=== PATIENT | male | born 1985 | race Caucasian/White ===

== ENCOUNTER 2017-05-20 23:01 | Emergency (ER) | payer OTHER ==
[2017-05-20 23:06] VITALS: BP 155/93; PULSE 83; RESP 18; TEMP 99.4
[2017-05-20] MEDS ORDERED: TOPICAL SKIN ADHESIVE 1 EACH AMP TOPICAL ONE (23:22)
--- NOTE | 2017-05-20 23:23 | ED ---
Wound/Laceration HPI - General Chief Complaint: Wound/Laceration Stated Complaint: IHS/ Face Injury Time Seen by Provider: 05/20/17 23:12 Source: patient Mode of arrival: ambulatory Limitations: no limitations - History of Present Illness Initial Comments: patient presents for cut on the bridge of his nose. Patient states when he was at work she was lifting a box off a shelf that was approximately had level. He states of box weighed only a few pounds. Patient states the box slipped and the corner "caught my nose just right" causing a cut on his nose. Patient states he has a mild ache in the area of the cut, however denies any other pain. Patient denies headache, vision changes, facial swelling, neck pain, syncope. Patient denies blood thinner use. patient has no other complaints other than cut on his nose. Pt states "I just wanted to glue it but they may be come in". - Related Data Home Medications Medication Instructions Recorded Confirmed Ibuprofen [Motrin] 800 mg PO ONCE PRN 05/20/17 05/20/17 Allergies Allergy/AdvReac Type Severity Reaction Status Date / Time No Known Allergies Allergy Verified 05/20/17 23:13 Review of Systems ROS Statement: Those systems with pertinent positive or pertinent negative responses have been documented in the HPI. Eyes: Denies: eye pain, eye discharge, vision change ENT: Reports: epistaxis (Currently resolved). Denies: dental pain, congestion Respiratory: Denies: dyspnea Cardiovascular: Denies: palpitations, syncope Endocrine: Denies: fatigue Gastrointestinal: Denies: nausea, vomiting Musculoskeletal: Denies: back pain, arthralgia Skin: Reports: other (cut on nose) Neurological: Denies: headache Past Medical History Past Medical History: No Reported History History of Any Multi-Drug Resistant Organisms: None Reported Past Surgical History: No Surgical Hx Reported Past Psychological History: No Psychological Hx Reported Smoking Status: Current every day smoker Past Alcohol Use History: None Reported Past Drug Use History: None Reported General Exam - General Exam Comments Initial Comments: sitting up on side of bed. No acute distress. Conversing normally. Calm, pleasant. Well appearing. Not appear in pain. Limitations: no limitations General appearance: alert, in no apparent distress Head exam: Present: normocephalic, other (bony tenderness of the face. mild edema on the bridge of the nose. Nares clear bilaterally. No septal hematoma. No laxity and nasal cartilage appreciated. ) Eye exam: Present: PERRL, EOMI. Absent: conjunctival injection, periorbital swelling, periorbital tenderness ENT exam: Present: normal oropharynx, mucous membranes moist, normal external ear exam, other (no blood in oropharynx. No dental abnormalities appreciated. No loose teeth or fractures appreciated.) Neck exam: Present: normal inspection, full ROM. Absent: tenderness Respiratory exam: Present: normal lung sounds bilaterally. Absent: respiratory distress Cardiovascular Exam: Present: regular rate, normal rhythm GI/Abdominal exam: Present: soft Neurological exam: Present: alert, oriented X3, CN II-XII intact Psychiatric exam: Present: normal affect, normal mood Skin exam: Present: warm, dry, normal color, other (1 cm superficial laceration across the bridge of the nose, no active bleeding. Appears to go into dermis only, not into subcutaneous tissue.) Course Vital Signs 05/20/17 23:02 Temperature 99.4 F Pulse Rate 83 Respiratory 18 Rate Blood Pressure 155/93 O2 Sat by Pulse 99 Oximetry Procedures - Laceration Laceration #1 Consent Obtained: verbal consent Time Out Performed: Yes Indication: laceration Site: face Size (cm): 1 Description: linear Depth: simple, single layer Pre-repair: deep structures intact Technique: other (Dermabond) Patient Tolerated Procedure: well Medical Decision Making - Medical Decision Making patient has no septal hematoma or signs of nasal fracture. Nasal cartilages fractured unlikely emergent intervention required. The patient unhappy with cosmetic outcomes he can be referred to Lasix surgery by primary care physician. Patient was happy and agreeable with plan for Dermabond glue. cut was cleaned with sterile saline. The cut was glued closed. Pt tolerated procedure well. Patient referred to primary care physician in one to 2 days for wound recheck. Return to ED if new or worsening symptoms. Patient understands and agrees. Disposition Clinical Impression: Laceration of nose Disposition: HOME SELF-CARE Condition: Good Instructions: Laceration (ED) Additional Instructions: follow-up with primary care physician in one to 2 days for wound recheck. Return to ED immediately if new or worsening symptoms. Referrals: Ross Plummer MD [Primary Care Provider] - 1-2 days
== END 2017-05-20 23:38 | disposition home or self-care (01) ==
LOC: EC 23:01
DX: S01.21XA Laceration without foreign body of nose, initial encounter (principal); F17.200 Nicotine dependence, unspecified, uncomplicated; W22.8XXA Striking against or struck by other objects, initial encounter; Y93.89 Activity, other specified; Y92.69 Other specified industrial and construction area as the place of occurrence of the external cause; Y99.0 Civilian activity done for income or pay
CPT/HCPCS: 12011; 99283

== ENCOUNTER 2017-10-29 09:34 | Emergency (ER) | payer BC ==
[2017-10-29] MEDS ORDERED: KETOROLAC 30 MG/ML 1 ML VIAL IVP STA (10:01)
[2017-10-29] MEDS ORDERED: FAMOTIDINE 20 MG/2 ML VIAL IV STA (10:01)
[2017-10-29] MEDS ORDERED: diphenhydrAMINE 50 MG/ML 1 ML VIAL IVP STA (10:01)
[2017-10-29] MEDS ORDERED: SODIUM CHLORIDE 0.9% 2,000 ML IV STA (10:01)
[2017-10-29] MEDS ORDERED: METOCLOPRAMIDE 5 MG/ML 2 ML VIAL IVP STA (10:01)
--- NOTE | 2017-10-29 10:23 | ED ---
General Adult HPI - General Chief complaint: Nausea/Vomiting/Diarrhea Stated complaint: Nausea & vomiting Time Seen by Provider: 10/29/17 09:40 Source: patient, RN notes reviewed Mode of arrival: ambulatory Limitations: no limitations - History of Present Illness Initial comments: 32-year-old male presents emergency Department with multiple complaints. Patient states she's had a headache last couple days normally has headaches states that he nor takes ibuprofen or other [id number] medications any alleviate's. He states occasionally he has come the hospital for his headaches. Patient denies any fever, chills, neck pain or focal weakness. Patient states she's been having ongoing nausea is been worsening. Patient states that he feels that he is heartburn. Denies any chest pain or shortness breath. Denies any diarrhea, constipation, dysuria or hematuria. He states occasionally takes Tums with states does not help much. Patient states he does take daily Prozac. - Related Data Home Medications Medication Instructions Recorded Confirmed FLUoxetine HCL [PROzac] 20 mg PO DAILY 10/29/17 10/29/17 methylPREDNISolone Dose Pack See Taper PO DIRECTED 10/29/17 10/29/17 [Medrol Dose Pack] Previous Rx's Medication Instructions Recorded Omeprazole 40 mg PO DAILY #14 capsule. 10/29/17 Ondansetron Odt [Zofran Odt] 4 mg PO Q8HR PRN #10 tab 10/29/17 Allergies Allergy/AdvReac Type Severity Reaction Status Date / Time No Known Allergies Allergy Verified 10/29/17 09:50 Review of Systems ROS Statement: Those systems with pertinent positive or pertinent negative responses have been documented in the HPI. ROS Other: All systems not noted in ROS Statement are negative. Past Medical History Past Medical History: No Reported History Additional Past Medical History / Comment(s): depressed skull fracture History of Any Multi-Drug Resistant Organisms: None Reported Past Surgical History: No Surgical Hx Reported Past Psychological History: Anxiety, Depression Smoking Status: Current every day smoker Past Alcohol Use History: None Reported Past Drug Use History: None Reported General Exam Limitations: no limitations General appearance: alert, in no apparent distress Head exam: Present: atraumatic, normocephalic, normal inspection Eye exam: Present: normal appearance, PERRL, EOMI. Absent: scleral icterus, conjunctival injection, periorbital swelling ENT exam: Present: normal exam, normal oropharynx, mucous membranes moist, TM's normal bilaterally, normal external ear exam Neck exam: Present: normal inspection, full ROM. Absent: tenderness, meningismus, lymphadenopathy Respiratory exam: Present: normal lung sounds bilaterally. Absent: respiratory distress, wheezes, rales, rhonchi, stridor Cardiovascular Exam: Present: regular rate, normal rhythm, normal heart sounds. Absent: systolic murmur, diastolic murmur, rubs, gallop, clicks GI/Abdominal exam: Present: soft, tenderness (Mild epigastric), normal bowel sounds. Absent: distended, guarding, rebound, rigid Back exam: Absent: CVA tenderness (R), CVA tenderness (L) Neurological exam: Present: alert, oriented X3, CN II-XII intact, reflexes normal. Absent: motor sensory deficit Skin exam: Present: warm, dry, intact, normal color. Absent: rash Course Vital Signs 10/29/17 09:36 Temperature 97.7 F Pulse Rate 72 Respiratory 18 Rate Blood Pressure 154/96 O2 Sat by Pulse 99 Oximetry Medical Decision Making - Medical Decision Making 32-year-old male present emergency Department chief complaint of headache, nausea. Patient feels better after medications he does have slight residual headache but states it's most resolving. Patient states the nausea is improved. Patient also has underlying GERD/gastritis. He'll be given omeprazole 40 mg daily. Patient was given Zofran upon discharge. Return parameters were discussed. - Lab Data Result diagrams: 10/29/17 10:10 10/29/17 10:10 Lab Results 10/29/17 10/29/17 10/29/17 Range/Units 10:10 10:10 10:10 WBC 10.8 H (3.8-10.6) k/uL RBC 5.01 (4.30-5.90) m/uL Hgb 15.4 (13.0-17.5) gm/dL Hct 44.8 (39.0-53.0) % MCV 89.3 (80.0-100.0) fL MCH 30.8 (25.0-35.0) pg MCHC 34.5 (31.0-37.0) g/dL RDW 12.8 (11.5-15.5) % Plt Count 401 (150-450) k/uL Neutrophils % 63 % Lymphocytes % 26 % Monocytes % 5 % Eosinophils % 3 % Basophils % 0 % Neutrophils # 6.8 (1.3-7.7) k/uL Lymphocytes # 2.8 (1.0-4.8) k/uL Monocytes # 0.6 (0-1.0) k/uL Eosinophils # 0.3 (0-0.7) k/uL Basophils # 0.1 (0-0.2) k/uL Sodium 143 (137-145) mmol/L Potassium 4.5 (3.5-5.1) mmol/L Chloride 104 (98-107) mmol/L Carbon Dioxide 27 (22-30) mmol/L Anion Gap 12 mmol/L BUN 18 (9-20) mg/dL Creatinine 0.85 (0.66-1.25) mg/dL Est GFR (CKD-EPI)AfAm >90 (>60 ml/min/1.73 sqM) Est GFR (CKD-EPI)NonAf >90 (>60 ml/min/1.73 sqM) Glucose 99 (74-99) mg/dL Calcium 10.1 (8.4-10.2) mg/dL Total Bilirubin 0.5 (0.2-1.3) mg/dL AST 18 (17-59) U/L ALT 24 (21-72) U/L Alkaline Phosphatase 54 (38-126) U/L Total Protein 7.4 (6.3-8.2) g/dL Albumin 4.5 (3.5-5.0) g/dL Amylase 64 (30-110) U/L Lipase 139 (23-300) U/L Urine Color Yellow Urine Appearance Clear (Clear) Urine pH 5.5 (5.0-8.0) Ur Specific [place] 1.015 (1.001-1.035) Urine Protein Negative (Negative) Urine Glucose (UA) Negative (Negative) Urine Ketones Negative (Negative) Urine Blood Negative (Negative) Urine Nitrite Negative (Negative) Urine Bilirubin Negative (Negative) Urine Urobilinogen <2.0 (<2.0) mg/dL Ur Leukocyte Esterase Negative (Negative) Disposition Clinical Impression: Gastritis, Nausea, Headache Disposition: HOME SELF-CARE Condition: Stable Instructions: Gastritis (ED) Additional Instructions: Please return to the Emergency Department if symptoms worsen or any other concerns. Prescriptions: Omeprazole 40 mg PO DAILY #14 capsule. Ondansetron Odt [Zofran Odt] 4 mg PO Q8HR PRN #10 tab PRN Reason: Nausea Referrals: Ross Plummer MD [Primary Care Provider] - 1-2 days Time of Disposition: 10:59
[2017-10-29 10:36] LABS: Basophils # (A) 0.1 k/uL (0-0.2); Basophils % (A) 0 %; Eosinophils # (A) 0.3 k/uL (0-0.7); Eosinophils % (A) 3 %; HCT 44.8 % (39.0-53.0); HGB 15.4 gm/dL (13.0-17.5); Lymphocytes # (A) 2.8 k/uL (1.0-4.8); Lymphocytes % (A) 26 %; MCH 30.8 pg (25.0-35.0); MCHC 34.5 g/dL (31.0-37.0); MCV 89.3 fL (80.0-100.0); Mean Platelet Volume 6.5; Monocytes # (A) 0.6 k/uL (0-1.0); Monocytes % (A) 5 %; Neutrophils # (A) 6.8 k/uL (1.3-7.7); Neutrophils % (A) 63 %; Platelet Count 401 k/uL (150-450); RBC 5.01 m/uL (4.30-5.90); RDW 12.8 % (11.5-15.5); WBC 10.8 k/uL (3.8-10.6)
[2017-10-29 10:37] LABS: Appearance,Urine Clear (Clear); Bilirubin,Urine Negative (Negative); Blood,Urine Negative (Negative); Color,Urine Yellow; Glucose,Urine (UA) Negative (Negative); Ketones,Urine Negative (Negative); Leukocyte Esterase,Urine Negative (Negative); Nitrite,Urine Negative (Negative); PH, Urine 5.5 (5.0-8.0); Protein,Urine Negative (Negative); Specific Gravity,Urine 1.015 (1.001-1.035); Urobilinogen,Urine <2.0 mg/dL (<2.0)
[2017-10-29 10:45] LABS: ALT 24 U/L (21-72); AST 18 U/L (17-59); Albumin 4.5 g/dL (3.5-5.0); Alkaline Phosphatase 54 U/L (38-126); Amylase 64 U/L (30-110); Anion Gap 12 mmol/L; Blood Urea Nitrogen 18 mg/dL (9-20); Calcium 10.1 mg/dL (8.4-10.2); Carbon Dioxide 27 mmol/L (22-30); Chloride 104 mmol/L (98-107); Glucose 99 mg/dL (74-99); Lipase 139 U/L (23-300); Potassium 4.5 mmol/L (3.5-5.1); Sodium 143 mmol/L (137-145); Total Bilirubin 0.5 mg/dL (0.2-1.3); Total Protein 7.4 g/dL (6.3-8.2)
[2017-10-29] MEDS ORDERED: BUTALB/APAP/CAFF 50-325-40MG TAB PO STA (10:57)
[2017-10-29 11:20] VITALS: BP 136/82; PULSE 78; RESP 16; TEMP 97.8
== END 2017-10-29 11:21 | disposition home or self-care (01) ==
LOC: EC 09:34
DX: K29.70 Gastritis, unspecified, without bleeding (principal); R51 Headache; F32.9 Major depressive disorder, single episode, unspecified; F17.200 Nicotine dependence, unspecified, uncomplicated; Z79.899 Other long term (current) drug therapy; Z79.52 Long term (current) use of systemic steroids
CPT/HCPCS: 99284; 96374; 96375 ×3; 96361; 36415; 80053; 82150; 83690; 85025; 81003; J1200; J2765; J1885

== ENCOUNTER → 2017-11-04 | Outpatient (CLI) | payer BC ==
--- NOTE | 2017-11-04 14:12 | CT ---
EXAMINATION TYPE: CT brain wo/w con DATE OF EXAM: 11/04/2017 COMPARISON: NONE HISTORY: Headache x [address] DLP: 2094.2 mGycm Automated Exposure Control for Dose Reduction was Utilized. TECHNIQUE: CT scan of the head is performed without and with IV Contrast, patient injected with 100 m L of Isovue 300. FINDINGS: Noncontrast images show no acute intracranial hemorrhage or midline shift. The ventricles and sulci are within normal limits in size. Ram-white matter differentiation is maintained. The karen varium is intact. Postcontrast images show no suspicious enhancing intraparenchymal mass. The globes are intact and the visualized sinuses are clear. Nasal septum is deviated to right of midline. IMPRESSION: No significant finding is seen to account for patient's symptoms.
== END | disposition home or self-care (01) ==
LOC: RADCTMAIN 12:54
PROVIDERS: ATTEND Family Medicine
DX: R51 Headache (principal)
CPT/HCPCS: 70470; Q9967

== ENCOUNTER 2017-11-25 11:16 | Emergency (ER) | payer BC ==
[2017-11-25 12:08] VITALS: BP 156/91; PULSE 76; RESP 18; TEMP 98
[2017-11-25 14:41] LABS: Basophils % (A) 0 %; Eosinophils # (A) 0.1 k/uL (0-0.7); Eosinophils % (A) 1 %; HCT 45.6 % (39.0-53.0); HGB 15.6 gm/dL (13.0-17.5); Lymphocytes # (A) 2.5 k/uL (1.0-4.8); Lymphocytes % (A) 25 %; MCH 29.6 pg (25.0-35.0); MCHC 34.2 g/dL (31.0-37.0); MCV 86.5 fL (80.0-100.0); Mean Platelet Volume 6.8; Monocytes # (A) 0.5 k/uL (0-1.0); Monocytes % (A) 5 %; Neutrophils # (A) 6.7 k/uL (1.3-7.7); Neutrophils % (A) 67 %; Platelet Count 430 k/uL (150-450); RBC 5.26 m/uL (4.30-5.90); RDW 12.5 % (11.5-15.5); WBC 10.1 k/uL (3.8-10.6)
[2017-11-25 14:48] LABS: ALT 24 U/L (21-72); AST 21 U/L (17-59); Alkaline Phosphatase 75 U/L (38-126); Amylase 57 U/L (30-110); Anion Gap 14 mmol/L; Blood Urea Nitrogen 16 mg/dL (9-20); Calcium 10.1 mg/dL (8.4-10.2); Carbon Dioxide 25 mmol/L (22-30); Chloride 102 mmol/L (98-107); Glucose 91 mg/dL (74-99); Lipase 69 U/L (23-300); Potassium 4.4 mmol/L (3.5-5.1); Sodium 141 mmol/L (137-145); Total Bilirubin 0.6 mg/dL (0.2-1.3); Total Protein 7.8 g/dL (6.3-8.2)
[2017-11-25] MEDS ORDERED: METOCLOPRAMIDE 5 MG/ML 2 ML VIAL IVP STA (15:12)
[2017-11-25] MEDS ORDERED: diphenhydrAMINE 50 MG/ML 1 ML VIAL IVP STA (15:12)
[2017-11-25] MEDS ORDERED: SODIUM CHLORIDE 0.9% 1,000 ML IV ONE (15:12)
[2017-11-25] MEDS ORDERED: KETOROLAC 30 MG/ML 1 ML VIAL IVP STA (15:12)
--- NOTE | 2017-11-25 15:17 | ED ---
General Adult HPI - General Chief complaint: Nausea/Vomiting/Diarrhea Stated complaint: Nausea/Vomiting/Migraine/Abd Pain Time Seen by Provider: 11/25/17 15:03 Source: patient Mode of arrival: ambulatory Limitations: no limitations - History of Present Illness Initial comments: This is a 32-year-old male with a history of migraines who presents emergency department for migraine, nausea, and vomiting. He states that this migraine has been going on for the last couple of days. He states that he typically gets one migraine a month and this feels typical for him. He states he has been having a lot of nausea over the last month which has been constant. He states that last night he developed some epigastric abdominal pain that radiated to his back. He states it gets worse with burping, eating, or coughing and he states that he has not noticed any blood in his vomit. No black or bloody stools currently. He does have chronically loose stools. He denies any lightheadedness. No focal neurologic symptoms including weakness, numbness, or speech difficulty. No double vision. Denies any other acute complaints. He was seen here earlier in the month for similar complaints and workup was negative. A computed tomography scan done outpatient which was negative. - Related Data Home Medications Medication Instructions Recorded Confirmed FLUoxetine HCL [PROzac] 20 mg PO DAILY 10/29/17 10/29/17 methylPREDNISolone Dose Pack See Taper PO DIRECTED 10/29/17 10/29/17 [Medrol Dose Pack] Previous Rx's Medication Instructions Recorded Omeprazole 40 mg PO DAILY #14 capsule. 10/29/17 Ondansetron Odt [Zofran Odt] 4 mg PO Q8HR PRN #10 tab 10/29/17 Allergies Allergy/AdvReac Type Severity Reaction Status Date / Time No Known Allergies Allergy Verified 11/25/17 12:07 Review of Systems ROS Statement: Those systems with pertinent positive or pertinent negative responses have been documented in the HPI. ROS Other: All systems not noted in ROS Statement are negative. Past Medical History Past Medical History: No Reported History, GERD/Reflux, Hypertension Additional Past Medical History / Comment(s): depressed skull fracture History of Any Multi-Drug Resistant Organisms: None Reported Past Surgical History: No Surgical Hx Reported Past Psychological History: Anxiety, Depression Smoking Status: Current every day smoker Past Alcohol Use History: None Reported Past Drug Use History: None Reported General Exam - General Exam Comments Initial Comments: Constitutional: Awake alert Appears comfortable Head: Normocephalic atraumatic Eyes: no conjunctival injection No scleral icterus EOMI, pupils are 4 mm and reactive bilaterally Neck: No JVD Supple, no meningismus Heart: Regular rate rhythm normal S1-S2 no murmurs Lungs: Clear to auscultation bilaterally No wheezing No rales Abdomen: Soft nondistended epigastric tenderness without rebound or guarding Extremities: Non edematous DP pulses intact Radial pulses intact Neuro: A&Ox3, 5 out of 5 strength in upper and lower extremities bilaterally, normal finger to nose and heel to barr testing, sensation intact to light touch in all extremities, cranial nerves II through XII are grossly intact No focal neurologic deficits Psych: Appropriate mood and affect Limitations: no limitations Course Vital Signs 11/25/17 12:05 Temperature 98.0 F Pulse Rate 76 Respiratory 18 Rate Blood Pressure 156/91 O2 Sat by Pulse 96 Oximetry Medical Decision Making - Medical Decision Making -year-old came in for nausea, vomiting, and headache. The patient eloped from the emergency department prior to full evaluation. I was not able to find the patient. He did not notify nursing or myself that he was leaving. IV was found on the gurney as well as the gown. - Lab Data Result diagrams: 11/25/17 14:30 11/25/17 14:30 Lab Results 11/25/17 11/25/17 Range/Units 14:30 14:30 WBC 10.1 (3.8-10.6) k/uL RBC 5.26 (4.30-5.90) m/uL Hgb 15.6 (13.0-17.5) gm/dL Hct 45.6 (39.0-53.0) % MCV 86.5 (80.0-100.0) fL MCH 29.6 (25.0-35.0) pg MCHC 34.2 (31.0-37.0) g/dL RDW 12.5 (11.5-15.5) % Plt Count 430 (150-450) k/uL Neutrophils % 67 % Lymphocytes % 25 % Monocytes % 5 % Eosinophils % 1 % Basophils % 0 % Neutrophils # 6.7 (1.3-7.7) k/uL Lymphocytes # 2.5 (1.0-4.8) k/uL Monocytes # 0.5 (0-1.0) k/uL Eosinophils # 0.1 (0-0.7) k/uL Basophils # 0.0 (0-0.2) k/uL Sodium 141 (137-145) mmol/L Potassium 4.4 (3.5-5.1) mmol/L Chloride 102 (98-107) mmol/L Carbon Dioxide 25 (22-30) mmol/L Anion Gap 14 mmol/L BUN 16 (9-20) mg/dL Creatinine 0.80 (0.66-1.25) mg/dL Est GFR (CKD-EPI)AfAm >90 (>60 ml/min/1.73 sqM) Est GFR (CKD-EPI)NonAf >90 (>60 ml/min/1.73 sqM) Glucose 91 (74-99) mg/dL Calcium 10.1 (8.4-10.2) mg/dL Total Bilirubin 0.6 (0.2-1.3) mg/dL AST 21 (17-59) U/L ALT 24 (21-72) U/L Alkaline Phosphatase 75 (38-126) U/L Total Protein 7.8 (6.3-8.2) g/dL Albumin 5.0 (3.5-5.0) g/dL Amylase 57 (30-110) U/L Lipase 69 (23-300) U/L Disposition Clinical Impression: Headache Disposition: Left W/O Being Seen by Phys Referrals: Ross Plummer MD [Primary Care Provider] - 1-2 days
== END 2017-11-25 16:51 | disposition left against medical advice (07) ==
LOC: EC 11:16
DX: G43.909 Migraine, unspecified, not intractable, without status migrainosus (principal); R11.2 Nausea with vomiting, unspecified; R10.13 Epigastric pain; M54.9 Dorsalgia, unspecified; F32.9 Major depressive disorder, single episode, unspecified; F41.9 Anxiety disorder, unspecified; F17.200 Nicotine dependence, unspecified, uncomplicated; Z79.52 Long term (current) use of systemic steroids; Z79.899 Other long term (current) drug therapy
CPT/HCPCS: 36415; 80053; 82150; 83690; 85025; 99284; 96374; 96375 ×2; 96361; J1200; J2765; J1885

== ENCOUNTER 2017-12-15 13:09 | Day surgery (SDC) | payer BC ==
[~2017-12-15 13:09] MED LIST: LACTATED RINGERS 1,000 ML IV SCH
[2017-12-15 13:25] VITALS: TEMP 98.6
[2017-12-15] MEDS ORDERED: LIDOCAINE 1% 20 ML VIAL (10MG/ML) FOR IV START INTRADERMA ONE (13:34)
[2017-12-15] MEDS ORDERED: LIDOCAINE 1% INJ 10MG/ML (20 ML MDV) ONE (14:49)
[2017-12-15] MEDS ORDERED: PROPOFOL 10 MG/ML 20 ML VIAL IV ONE (14:49)
--- NOTE | 2017-12-15 15:11 | P.PCN ---
Date of Procedure: 12/15/17 Procedure(s) Performed: Procedure: Esophagogastroduodenoscopy and biopsy. Preoperative diagnosis: Nausea and vomiting. Postoperative diagnosis: 1. Small sliding hiatal hernia with no obvious esophagitis or complicated reflux disease. 2. Small distal esophageal polyp benign-appearing. 3. Mild gastritis and duodenitis. 4. Biopsies obtained from the duodenum, antrum, esophagus in addition to the esophageal polyp. Preparation sedation: Was provided by anesthesia. Brief clinical history: The patient is a 32-year-old male who is scheduled for this evaluation because of onset of nausea and vomiting as well as abdominal pains and change in bowels that occurred over the last 2 to 3 months. No bleeding or other alarm symptoms. The patient has not responded to PPI and responded partially to symptomatic treatment. Procedure: With the patient on his left lateral decubitus position and after informed consent and adequate sedation, I passed the Olympus-GIF 160 video upper endoscope through the cricopharyngeus down the esophagus. GE junction was around 41 cm from the incisors and there was a small less than 1 cm sliding hiatal hernia. There was no obvious esophagitis or complicated reflux disease. There was a small, less than half a centimeter polyp, in the distal esophagus that appeared benign. The endoscope was then passed into the stomach which was insufflated with air and inspected in detail including the retroflex view in the cardia. There was minimal mottling and erythema in the antrum but no ulcers or erosions. Pyloric channel did not show any ulcers. Duodenal bulb, post bulbar area and descending duodenum showed some erythema and minimal friability with no ulcers or erosions. I obtained biopsies from the duodenum, antrum and esophagus as well as from the distal esophageal polyp then the endoscope was withdrawn. The patient tolerated the procedure well. Plan: The patient was reassured. Will await biopsy results and make further plans based on his course and biopsy results. He will follow up with you as planned and I will be happy to see in the office of his symptoms persist.
[2017-12-15 15:13] VITALS: RESP 16
[2017-12-15] MEDS: BUTA/APAP/CAF/COD 50-325-40-30 CAP PO STA ×2 (15:45→15:47)
[2017-12-15 15:55] LABS: Glucose,Whole Blood 88 mg/dL (75-99)
[2017-12-15 16:16] VITALS: BP 124/70; PULSE 80
== END 2017-12-15 16:12 | disposition home or self-care (01) ==
LOC: ORWHC2ENDO 13:09
DX: K29.50 Unspecified chronic gastritis without bleeding (principal); K21.0 Gastro-esophageal reflux disease with esophagitis; D13.0 Benign neoplasm of esophagus; K29.80 Duodenitis without bleeding; K44.9 Diaphragmatic hernia without obstruction or gangrene; I10 Essential (primary) hypertension; F39 Unspecified mood [affective] disorder; R51 Headache; G89.29 Other chronic pain; Z72.0 Tobacco use; Z79.899 Other long term (current) drug therapy
CPT/HCPCS: 43239; J2001; J2704; 88305

== ENCOUNTER → 2017-12-25 | Outpatient (CLI) | payer BC, OTHER ==
--- NOTE | 2017-12-25 10:37 | US ---
EXAMINATION TYPE: US abdomen complete DATE OF EXAM: 12/25/2017 COMPARISON: NONE CLINICAL HISTORY: R10.9 ABD PAIN. Intermittent RUQ pain and N/V x couple years that has gotten worse in past 2 months EXAM MEASUREMENTS: Liver Length: 13.4 cm Gallbladder Wall: 0.2 cm CBD: 0.2 cm Spleen: 10.7 cm Right Kidney: 11.4 x 4.3 x 4.8 cm Left Kidney: 11.9 x 5.6 x 4.9 cm Pancreas: obscured by overlying midline bowel gas Liver: wnl Gallbladder: wnl Evidence for sonographic Trujillo's sign: yes CBD: visualized portions wnl, limited by overlying bowel gas Spleen: wnl Right Kidney: wnl Left Kidney: wnl Upper IVC: wnl Abd Aorta: visualized portions wnl, proximal portion limited by overlying midline bowel gas The liver is homogenous. The intrahepatic portion of the IVC and proximal abdominal aorta are within normal limits. There is no evidence of cholelithiasis. Common bile duct is unremarkable. The panc reas is obscured by overlying bowel gas on images saved. The spleen is unremarkable. Kidneys are sy mmetric and free of hydronephrosis. No renal lesions are seen. IMPRESSION: No suspicious finding is seen to account for patient's symptoms on images saved.
== END | disposition home or self-care (01) ==
LOC: RADUSWWP 07:25
DX: R10.9 Unspecified abdominal pain (principal)
CPT/HCPCS: 76700

== ENCOUNTER 2018-07-06 12:11 | Emergency (ER) | payer BC, OTHER ==
[2018-07-06] MEDS ORDERED: IPRATROPIUM-ALBUTEROL 3 ML NEB INHALATION STA (12:45)
--- NOTE | 2018-07-06 12:49 | ED ---
General Adult HPI - General Chief complaint: Upper Respiratory Infection Stated complaint: Cold/rib pain Time Seen by Provider: 07/06/18 12:24 Source: patient, RN notes reviewed Mode of arrival: ambulatory Limitations: no limitations - History of Present Illness Initial comments: 33-year-old male presents to the emergency department for a chief complaint of cough 10 days. Patient states he feels as if he has congestion in his chest but states he is unable to cough anything up. He does have a history of asthma. Patient is also a smoker. Patient states his bilateral ribs are painful when he coughs. He denies any midline back pain or anterior chest pain. He admits to mild shortness of breath. He denies fevers or chills. Patient has no other complaints at this time including chest pain, abdominal pain, nausea or vomiting, headache, or visual changes. - Related Data Home Medications Medication Instructions Recorded Confirmed Atorvastatin [Lipitor] 20 mg PO QAM 12/11/17 07/06/18 Ergocalciferol (Vitamin D2) 50,000 unit PO Q30D 12/11/17 07/06/18 [Vitamin D2] Omeprazole [PriLOSEC] 20 mg PO BID 12/11/17 07/06/18 buPROPion HCL [Wellbutrin SR] 150 mg PO BID 12/11/17 07/06/18 Dextroamphetamine/Amphetamine 20 mg PO BID 07/06/18 07/06/18 [Adderall] Metoclopramide [Reglan] 10 mg PO ACHS 07/06/18 07/06/18 amLODIPine [Norvasc] 5 mg PO DAILY 07/06/18 07/06/18 Previous Rx's Medication Instructions Recorded Albuterol Inhaler [Ventolin Hfa 1 - 2 puff INHALATION Q6HR PRN #1 07/06/18 Inhaler] inhaler Azithromycin [Zithromax Z-pack] 250 mg PO DIRECTED #6 tab 07/06/18 predniSONE 50 mg PO DAILY #5 tablet 07/06/18 Allergies Allergy/AdvReac Type Severity Reaction Status Date / Time No Known Allergies Allergy Verified 07/06/18 13:45 Review of Systems ROS Statement: Those systems with pertinent positive or pertinent negative responses have been documented in the HPI. ROS Other: All systems not noted in ROS Statement are negative. Past Medical History Past Medical History: GERD/Reflux, Hypertension Additional Past Medical History / Comment(s): CURRENT: N & V, ABD PAIN. OCCASIONAL DIZZINESS. Depressed skull fracture History of Any Multi-Drug Resistant Organisms: None Reported Past Surgical History: No Surgical Hx Reported Past Anesthesia/Blood Transfusion Reactions: Motion Sickness Additional Past Anesthesia/Blood Transfusion Reaction / Comment(s): NO ANESTHESIA. Past Psychological History: Anxiety, Depression Smoking Status: Current every day smoker Past Alcohol Use History: None Reported Additional Past Alcohol Use History / Comment(s): SMOKED FOR 19 YRS, LESS THAN 1PPD. Past Drug Use History: None Reported - Past Family History Mother Family Medical History: No Reported History General Exam Limitations: no limitations General appearance: alert, in no apparent distress Head exam: Present: atraumatic, normocephalic, normal inspection Eye exam: Present: normal appearance, PERRL, EOMI. Absent: scleral icterus, conjunctival injection, periorbital swelling ENT exam: Present: normal exam, normal oropharynx, mucous membranes moist, TM's normal bilaterally, normal external ear exam Neck exam: Present: normal inspection, full ROM. Absent: tenderness, meningismus, lymphadenopathy Respiratory exam: Present: wheezes (Wheezing noted bilaterally), rales (Rales noted in right lower lung base), chest wall tenderness (Bilateral lower lateral rib tenderness) Cardiovascular Exam: Present: regular rate, normal rhythm, normal heart sounds. Absent: systolic murmur, diastolic murmur, rubs, gallop, clicks Neurological exam: Present: alert, oriented X3, CN II-XII intact Psychiatric exam: Present: normal affect, normal mood Course Vital Signs 07/06/18 07/06/18 07/06/18 12:13 13:31 13:44 Temperature 98.1 F Pulse Rate 106 H 104 H Respiratory 20 24 Rate Blood Pressure 168/112 O2 Sat by Pulse 97 Oximetry 07/06/18 07/06/18 13:53 14:00 Temperature Pulse Rate 100 87 Respiratory 22 Rate Blood Pressure 136/93 O2 Sat by Pulse 97 Oximetry Medical Decision Making - Medical Decision Making 33-year-old male presents to the emergency department for a chief complaint of cough 10 days. Patient has also felt short of breath. Patient has tenderness to bilateral lateral lower ribs and states this is painful when coughing. Denies any midline back pain or chest pain. Patient admits to mild shortness of breath. Patient was initially tachycardic but heart rate did normalize to 87. Blood pressure normalized to 136/93. Patient does have wheezing noted throughout the lungs with crackles noted in the right lung base. Influenza is negative. Chest x-ray shows no acute cardiopulmonary process. Patient is a smoker, did discuss smoking cessation for 3.1 minutes. Patient was given a nebulizer treatment which helped significantly. Patient will be given albuterol inhaler at home. As patient does have wheezing and crackles noted in the lungs and this has been ongoing for 10 days he will be treated with antibiotics. He was given steroid. I did offer IM steroid the patient prefers oral steroid. Discussed returning if he has any worsening symptoms which she agrees with. - Lab Data Lab Results 07/06/18 Range/Units 13:30 Influenza Type A RNA Not Detected (Not Detectd) Influenza Type B (PCR) Not Detected (Not Detectd) Disposition Clinical Impression: Bronchitis with bronchospasm Disposition: HOME SELF-CARE Condition: Good Instructions: Upper Respiratory Infection (ED) Additional Instructions: Please take antibiotic and steroid as directed. Use inhaler as needed. Follow- up with primary care in 1-2 days. Return to the emergency department if you have worsening symptoms. Prescriptions: Albuterol Inhaler [Ventolin Hfa Inhaler] 1 - 2 puff INHALATION Q6HR PRN #1 inhaler PRN Reason: Shortness Of Breath Azithromycin [Zithromax Z-pack] 250 mg PO DIRECTED #6 tab predniSONE 50 mg PO DAILY #5 tablet Is patient prescribed a controlled substance at d/c from ED?: No Referrals: Ross Plummer MD [Primary Care Provider] - 1-2 days Time of Disposition: 14:25
--- NOTE | 2018-07-06 13:49 | XR ---
EXAMINATION TYPE: XR chest 2V DATE OF EXAM: 07/06/2018 COMPARISON: NONE HISTORY: Cough, rib pain and shortness of breath TECHNIQUE: Frontal and lateral views of the chest are obtained. FINDINGS: There is no focal air space opacity, pleural effusion, or pneumothorax seen. The cardiac silhouette size is within normal limits. The osseous structures are intact. IMPRESSION: No acute cardiopulmonary process.
[2018-07-06] MEDS ORDERED: cefTRIAXone 1,000 MG VIAL (IM USE) IM STA (14:24)
[2018-07-06] MEDS ORDERED: predniSONE 50 MG TAB PO STA (14:25)
[2018-07-06 14:57] VITALS: BP 138/98; PULSE 89; RESP 20; TEMP 98.4
== END 2018-07-06 14:54 | disposition home or self-care (01) ==
LOC: EC 12:11
DX: J40 Bronchitis, not specified as acute or chronic (principal); J98.01 Acute bronchospasm; I10 Essential (primary) hypertension; K21.9 Gastro-esophageal reflux disease without esophagitis; F32.9 Major depressive disorder, single episode, unspecified; F41.9 Anxiety disorder, unspecified; F17.200 Nicotine dependence, unspecified, uncomplicated; Z79.899 Other long term (current) drug therapy
CPT/HCPCS: 94640; 87502; 71046; 99284; 96372; J0696; J7512

== ENCOUNTER 2019-03-22 10:17 | Emergency (ER) | payer OTHER ==
[2019-03-22] MEDS ORDERED: PROPARACAINE 0.5% OPHTH DROPS 15 ML BTL LEFT EYE STA (10:46)
--- NOTE | 2019-03-22 10:49 | ED ---
Eye Problem HPI - General Chief complaint: Eye Problems Stated complaint: [facility] - eye exposure Time Seen by Provider: 03/22/19 10:37 Source: patient Mode of arrival: ambulatory Limitations: no limitations - History of Present Illness Initial comments: Patient is a 33-year-old male presents emergency Department with chief complaint of oil in his eye. Patient reports yesterday was working on his car when small amounts of oral went to his left eye. Patient is unsure whether there was small particles in the oil. Patient reports yesterday he developed mild "cloudiness" in left eye. Denies any pain. Patient reports waking up this morning and states the symptoms are not resolved. Patient denies any discharge or redness of the head. Patient denies any pain with extraocular movements or periorbital edema. Patient denies any fever night sweats or chills. Patient denies itchiness or photophobia. Patient does not wear contacts. - Related Data Home Medications Medication Instructions Recorded Confirmed Atorvastatin [Lipitor] 20 mg PO QAM 12/11/17 03/22/19 Ergocalciferol (Vitamin D2) 50,000 unit PO Q30D 12/11/17 03/22/19 [Vitamin D2] Omeprazole [PriLOSEC] 20 mg PO BID 12/11/17 03/22/19 buPROPion HCL [Wellbutrin SR] 150 mg PO BID 12/11/17 03/22/19 Dextroamphetamine/Amphetamine 20 mg PO BID 07/06/18 03/22/19 [Adderall] Metoclopramide [Reglan] 10 mg PO ACHS 07/06/18 03/22/19 amLODIPine [Norvasc] 5 mg PO DAILY 07/06/18 03/22/19 Albuterol Inhaler [Ventolin Hfa 1 - 2 puff INHALATION RT-Q6H PRN 03/22/19 03/22/19 Inhaler] Previous Rx's Medication Instructions Recorded Polymyxin B-Trimeth Sulf Ophth 1 drops BOTH EYES Q4H #1 bottle 03/22/19 [Polytrim Opthalmic] Allergies Allergy/AdvReac Type Severity Reaction Status Date / Time No Known Allergies Allergy Verified 03/22/19 11:03 Review of Systems ROS Statement: Those systems with pertinent positive or pertinent negative responses have been documented in the HPI. ROS Other: All systems not noted in ROS Statement are negative. Past Medical History Past Medical History: GERD/Reflux, Hypertension Additional Past Medical History / Comment(s): CURRENT: N & V, ABD PAIN. OCCASIONAL DIZZINESS. Depressed skull fracture History of Any Multi-Drug Resistant Organisms: None Reported Past Surgical History: No Surgical Hx Reported Past Anesthesia/Blood Transfusion Reactions: Motion Sickness Additional Past Anesthesia/Blood Transfusion Reaction / Comment(s): NO ANESTHESIA. Past Psychological History: Anxiety, Depression Smoking Status: Current every day smoker Past Alcohol Use History: None Reported Past Drug Use History: None Reported - Past Family History Mother Family Medical History: No Reported History General Exam Limitations: no limitations General appearance: alert, in no apparent distress Head exam: Present: atraumatic, normocephalic, normal inspection Eye exam: Present: normal appearance, PERRL, EOMI, conjunctival injection, other (Small abrasion noted in the left eye near the visual field at approximately 3:00) Pupils: Present: normal accommodation ENT exam: Present: normal exam, mucous membranes moist, normal external ear exam Neck exam: Present: normal inspection, full ROM Respiratory exam: Present: normal lung sounds bilaterally Cardiovascular Exam: Present: regular rate, normal rhythm, normal heart sounds Extremities exam: Present: normal inspection, full ROM Back exam: Present: normal inspection, full ROM Neurological exam: Present: alert, oriented X3 Psychiatric exam: Present: normal affect, normal mood Skin exam: Present: warm, intact, normal color Course Vital Signs 03/22/19 03/22/19 10:20 12:50 Temperature 98 F 98.0 F Pulse Rate 91 80 Respiratory 20 19 Rate Blood Pressure 153/90 140/74 O2 Sat by Pulse 99 98 Oximetry Medical Decision Making - Medical Decision Making Patient is a 33-year-old male presents emergency Department with chief complaint of eye pain. Visual acuity in the right eye is 20/20, left eye 20/25, both eyes 20/20. Tonometer measurements are 21mmhg on the left eye and 22 mmhg right eye. She does not have eye entrapment with extraocular movements. There is no paravertebral ecchymosis or edema. There is only mild conjunctival injections with a corneal abrasion noted near the visual field approximately 3:00 with fluorescent staining. I suspect the patient to have caused the corneal abrasion as he was trying to remove the oil from his eye. Patient will be discharged with Polytrim. Patient advised to follow-up with ophthalmology if symptoms worsen or not improve in about a week. Strict return parameters were thoroughly discussed the patient was understanding and agreeable. Case discussed physician. - EKG Data EKG Comments: Normal sinus rhythm, prolonged QT Ventricular rate 94, VA interval 164, QRS duration 90, QT/QTC 396/495,P-R-T axes 38 2 27 Disposition Clinical Impression: Corneal abrasion Disposition: HOME SELF-CARE Condition: Stable Instructions (If sedation given, give patient instructions): Abrasion (ED) Additional Instructions: Please take prescribe medication as directed. Please return to emergency department if symptoms worsen. Please follow up with ophthalmology if symptoms are not improving in about a week. Prescriptions: Polymyxin B-Trimeth Sulf Ophth [Polytrim Opthalmic] 1 drops BOTH EYES Q4H #1 bottle Is patient prescribed a controlled substance at d/c from ED?: No Referrals: Ross Plummer MD [Primary Care Provider] - 1-2 days Time of Disposition: 20:30
[2019-03-22 12:52] VITALS: BP 140/74; PULSE 80; RESP 19; TEMP 98
== END 2019-03-22 12:52 | disposition home or self-care (01) ==
LOC: EC 10:17
DX: S05.02XA Injury of conjunctiva and corneal abrasion without foreign body, left eye, initial encounter (principal); K21.9 Gastro-esophageal reflux disease without esophagitis; I10 Essential (primary) hypertension; F41.9 Anxiety disorder, unspecified; F32.9 Major depressive disorder, single episode, unspecified; F17.200 Nicotine dependence, unspecified, uncomplicated; Z79.899 Other long term (current) drug therapy; Y93.89 Activity, other specified
CPT/HCPCS: 99283

== ENCOUNTER → 2019-05-30 | Outpatient (CLI) | payer OTHER ==
--- NOTE | 2019-05-30 08:35 | US ---
EXAMINATION TYPE: US liver DATE OF EXAM: 05/30/2019 COMPARISON: Abdominal ultrasound dated 01/13/2018 CLINICAL HISTORY: R10.11 right upper quadrant pain. RUQ pain, NPO EXAM MEASUREMENTS: Liver Length: 14.5 cm Gallbladder Wall: 0.2 cm CBD: 0.2 cm Right Kidney: 10.8 x 4.9 x 5.0 cm Pancreas: wnl Liver: wnl Gallbladder: wnl Evidence for sonographic Trujillo's sign: neg CBD: wnl Right Kidney: No hydronephrosis or masses seen IMPRESSION: Unremarkable abdominal ultrasound. In this patient with right upper quadrant pain HIDA sc an with CCK could evaluate for biliary dyskinesia or chronic cholecystitis.
== END | disposition home or self-care (01) ==
LOC: RADUSWWP 07:16
PROVIDERS: ATTEND Family Medicine
DX: R10.11 Right upper quadrant pain (principal)
CPT/HCPCS: 76705

== ENCOUNTER 2019-06-01 09:56 | Emergency (ER) | payer OTHER ==
[2019-06-01 10:08] VITALS: TEMP 98
[2019-06-01] MEDS ORDERED: ONDANSETRON 4 MG/2 ML VIAL IVP STA (10:51)
[2019-06-01] MEDS ORDERED: KETOROLAC 30 MG/ML 1 ML VIAL IVP STA (10:51)
[2019-06-01] MEDS ORDERED: SODIUM CHLORIDE 0.9% 1,000 ML IV STA (10:51)
[2019-06-01] MEDS ORDERED: PANTOPRAZOLE 40 MG/10 ML VIAL IVP STA (10:51)
--- NOTE | 2019-06-01 11:01 | ED ---
Abdominal Pain HPI - General Chief Complaint: Abdominal Pain Stated Complaint: abd pain Time Seen by Provider: 06/01/19 10:37 Source: patient, RN notes reviewed, old records reviewed Mode of arrival: ambulatory Limitations: no limitations - History of Present Illness Initial Comments: Reports that this is a 34-year-old male with complaint of right upper quadrant pain 1 week. Patient reports he followed up with his primary care doctor and had an outpatient ultrasound on Thursday of liver or gallbladder. Patient reports he is not informed of these results. He states he was contaminating continued pain and felt he should come to the ER for reevaluation. He denies any associated chest pain or shortness of breath. He reports the pain radiated occ asionally radiates towards his back. He has a few episodes of nausea and vomiting. Denies any changes in stool. - Related Data Home Medications Medication Instructions Recorded Confirmed Atorvastatin [Lipitor] 20 mg PO QAM 12/11/17 03/22/19 Ergocalciferol (Vitamin D2) 50,000 unit PO Q30D 12/11/17 03/22/19 [Vitamin D2] Omeprazole [PriLOSEC] 20 mg PO BID 12/11/17 03/22/19 buPROPion HCL [Wellbutrin SR] 150 mg PO BID 12/11/17 03/22/19 Dextroamphetamine/Amphetamine 20 mg PO BID 07/06/18 03/22/19 [Adderall] Metoclopramide [Reglan] 10 mg PO ACHS 07/06/18 03/22/19 amLODIPine [Norvasc] 5 mg PO DAILY 07/06/18 03/22/19 Albuterol Inhaler [Ventolin Hfa 1 - 2 puff INHALATION RT-Q6H PRN 03/22/19 03/22/19 Inhaler] Previous Rx's Medication Instructions Recorded Polymyxin B-Trimeth Sulf Ophth 1 drops BOTH EYES Q4H #1 bottle 03/22/19 [Polytrim Opthalmic] Ondansetron Odt [Zofran Odt] 4 mg PO Q8HR PRN #12 tab 06/01/19 Pantoprazole [Protonix] 40 mg PO DAILY #12 tablet. 06/01/19 Allergies Allergy/AdvReac Type Severity Reaction Status Date / Time No Known Allergies Allergy Verified 06/01/19 10:06 Review of Systems ROS Statement: Those systems with pertinent positive or pertinent negative responses have been documented in the HPI. ROS Other: All systems not noted in ROS Statement are negative. Past Medical History Past Medical History: GERD/Reflux, Hypertension Additional Past Medical History / Comment(s): CURRENT: N & V, ABD PAIN. OCCASIONAL DIZZINESS. Depressed skull fracture History of Any Multi-Drug Resistant Organisms: None Reported Past Surgical History: No Surgical Hx Reported Past Anesthesia/Blood Transfusion Reactions: Motion Sickness Additional Past Anesthesia/Blood Transfusion Reaction / Comment(s): NO ANESTHESIA. Past Psychological History: Anxiety, Depression Smoking Status: Current every day smoker Past Alcohol Use History: None Reported Past Drug Use History: None Reported - Past Family History Mother Family Medical History: No Reported History General Exam - General Exam Comments Initial Comments: 34-year-old male. No distress. Limitations: no limitations General appearance: alert, in no apparent distress Head exam: Present: atraumatic, normocephalic, normal inspection Eye exam: Present: normal appearance ENT exam: Present: normal exam, mucous membranes moist Neck exam: Present: normal inspection. Absent: tenderness, meningismus, lymphadenopathy Respiratory exam: Present: normal lung sounds bilaterally. Absent: respiratory distress, wheezes, rales, rhonchi, stridor Cardiovascular Exam: Present: regular rate, normal rhythm, normal heart sounds. Absent: systolic murmur, diastolic murmur, rubs, gallop, clicks GI/Abdominal exam: Present: soft, normal bowel sounds. Absent: distended, tenderness, guarding, rebound, rigid Extremities exam: Present: normal inspection, full ROM, normal capillary refill. Absent: tenderness, pedal edema, joint swelling, calf tenderness Back exam: Present: normal inspection Neurological exam: Present: alert, oriented X3, CN II-XII intact Psychiatric exam: Present: normal affect Skin exam: Present: warm Course Vital Signs 06/01/19 06/01/19 10:06 13:51 Temperature 98 F Pulse Rate 89 74 Respiratory 18 16 Rate Blood Pressure 144/83 128/77 O2 Sat by Pulse 98 Oximetry Medical Decision Making - Medical Decision Making 34-year-old male, presents today for concern for right upper quadrant pain, has had a worse the past 3 days. He's been having the symptoms for the past 3 weeks. Patient at this time has minimal tenderness, no vomiting. Blood work is obtained and unremarkable. He had an ultrasound earlier this week which showed a normal gallbladder at that time. I discussed the Patient could still be suffering from biliary colic recommended Patient proceed with a HIDA scan and follow-up with primary care physician. Discussed return parameters. - Lab Data Result diagrams: 06/01/19 11:24 06/01/19 11:24 Lab Results 06/01/19 06/01/19 06/01/19 Range/Units 11:24 11:24 11:24 WBC 12.7 H (3.8-10.6) k/uL RBC 4.67 (4.30-5.90) m/uL Hgb 14.4 (13.0-17.5) gm/dL Hct 42.9 (39.0-53.0) % MCV 91.9 (80.0-100.0) fL MCH 30.9 (25.0-35.0) pg MCHC 33.6 (31.0-37.0) g/dL RDW 13.3 (11.5-15.5) % Plt Count 438 (150-450) k/uL Neutrophils % 78 % Lymphocytes % 15 % Monocytes % 3 % Eosinophils % 1 % Basophils % 1 % Neutrophils # 10.0 H (1.3-7.7) k/uL Lymphocytes # 1.9 (1.0-4.8) k/uL Monocytes # 0.4 (0-1.0) k/uL Eosinophils # 0.1 (0-0.7) k/uL Basophils # 0.1 (0-0.2) k/uL PT 10.0 (9.0-12.0) sec INR 0.9 (<1.2) APTT 23.6 (22.0-30.0) sec Sodium 142 (137-145) mmol/L Potassium 4.2 (3.5-5.1) mmol/L Chloride 108 H (98-107) mmol/L Carbon Dioxide 24 (22-30) mmol/L Anion Gap 10 mmol/L BUN 15 (9-20) mg/dL Creatinine 0.73 (0.66-1.25) mg/dL Est GFR (CKD-EPI)AfAm >90 (>60 ml/min/1.73 sqM) Est GFR (CKD-EPI)NonAf >90 (>60 ml/min/1.73 sqM) Glucose 102 H (74-99) mg/dL Calcium 10.2 (8.4-10.2) mg/dL Total Bilirubin 0.4 (0.2-1.3) mg/dL AST 31 (17-59) U/L ALT 41 (21-72) U/L Alkaline Phosphatase 64 (38-126) U/L Total Protein 7.8 (6.3-8.2) g/dL Albumin 4.9 (3.5-5.0) g/dL Amylase 92 (30-110) U/L Lipase 194 (23-300) U/L Urine Color Urine Appearance (Clear) Urine pH (5.0-8.0) Ur Specific [place] (1.001-1.035) Urine Protein (Negative) Urine Glucose (UA) (Negative) Urine Ketones (Negative) Urine Blood (Negative) Urine Nitrite (Negative) Urine Bilirubin (Negative) Urine Urobilinogen (<2.0) mg/dL Ur Leukocyte Esterase (Negative) 06/01/19 Range/Units 13:10 WBC (3.8-10.6) k/uL RBC (4.30-5.90) m/uL Hgb (13.0-17.5) gm/dL Hct (39.0-53.0) % MCV (80.0-100.0) fL MCH (25.0-35.0) pg MCHC (31.0-37.0) g/dL RDW (11.5-15.5) % Plt Count (150-450) k/uL Neutrophils % % Lymphocytes % % Monocytes % % Eosinophils % % Basophils % % Neutrophils # (1.3-7.7) k/uL Lymphocytes # (1.0-4.8) k/uL Monocytes # (0-1.0) k/uL Eosinophils # (0-0.7) k/uL Basophils # (0-0.2) k/uL PT (9.0-12.0) sec INR (<1.2) APTT (22.0-30.0) sec Sodium (137-145) mmol/L Potassium (3.5-5.1) mmol/L Chloride (98-107) mmol/L Carbon Dioxide (22-30) mmol/L Anion Gap mmol/L BUN (9-20) mg/dL Creatinine (0.66-1.25) mg/dL Est GFR (CKD-EPI)AfAm (>60 ml/min/1.73 sqM) Est GFR (CKD-EPI)NonAf (>60 ml/min/1.73 sqM) Glucose (74-99) mg/dL Calcium (8.4-10.2) mg/dL Total Bilirubin (0.2-1.3) mg/dL AST (17-59) U/L ALT (21-72) U/L Alkaline Phosphatase (38-126) U/L Total Protein (6.3-8.2) g/dL Albumin (3.5-5.0) g/dL Amylase (30-110) U/L Lipase (23-300) U/L Urine Color Yellow Urine Appearance Clear (Clear) Urine pH 6.0 (5.0-8.0) Ur Specific [place] 1.016 (1.001-1.035) Urine Protein Negative (Negative) Urine Glucose (UA) Negative (Negative) Urine Ketones Negative (Negative) Urine Blood Negative (Negative) Urine Nitrite Negative (Negative) Urine Bilirubin Negative (Negative) Urine Urobilinogen <2.0 (<2.0) mg/dL Ur Leukocyte Esterase Negative (Negative) - Radiology Data Radiology results: report reviewed Reviewed ultrasound from earlier this week, shows normal gallbladder. Recommended if persistent pain can proceed with HIDA scan. Disposition Clinical Impression: Biliary colic Disposition: HOME SELF-CARE Condition: Good Instructions (If sedation given, give patient instructions): Abdominal Pain (ED) Additional Instructions: Patient has follow-up with PCP or GI specialist Patient may need to have a HIDA scan. Patient should return to the emergency department if any alarming signs or symptoms occur. Prescriptions: Pantoprazole [Protonix] 40 mg PO DAILY #12 tablet. Ondansetron Odt [Zofran Odt] 4 mg PO Q8HR PRN #12 tab PRN Reason: Pain Is patient prescribed a controlled substance at d/c from ED?: No Referrals: Ross Plummer MD [Primary Care Provider] - 1-2 days Time of Disposition: 13:31
[2019-06-01 11:45] LABS: Basophils # (A) 0.1 k/uL (0-0.2); Basophils % (A) 1 %; Eosinophils # (A) 0.1 k/uL (0-0.7); Eosinophils % (A) 1 %; HCT 42.9 % (39.0-53.0); HGB 14.4 gm/dL (13.0-17.5); Lymphocytes # (A) 1.9 k/uL (1.0-4.8); Lymphocytes % (A) 15 %; MCH 30.9 pg (25.0-35.0); MCHC 33.6 g/dL (31.0-37.0); MCV 91.9 fL (80.0-100.0); Mean Platelet Volume 6.1; Monocytes # (A) 0.4 k/uL (0-1.0); Monocytes % (A) 3 %; Neutrophils % (A) 78 %; Platelet Count 438 k/uL (150-450); RBC 4.67 m/uL (4.30-5.90); RDW 13.3 % (11.5-15.5); WBC 12.7 k/uL (3.8-10.6)
[2019-06-01 11:57] LABS: INR 0.9 (<1.2); Partial Thromboplastin Time 23.6 sec (22.0-30.0)
[2019-06-01 12:03] LABS: ALT 41 U/L (21-72); AST 31 U/L (17-59); African American GFR (CKD) >90 (>60 ml/min/1.73 sqM); Albumin 4.9 g/dL (3.5-5.0); Alkaline Phosphatase 64 U/L (38-126); Amylase 92 U/L (30-110); Anion Gap 10 mmol/L; Blood Urea Nitrogen 15 mg/dL (9-20); Calcium 10.2 mg/dL (8.4-10.2); Carbon Dioxide 24 mmol/L (22-30); Chloride 108 mmol/L (98-107); Glucose 102 mg/dL (74-99); Potassium 4.2 mmol/L (3.5-5.1); Sodium 142 mmol/L (137-145); Total Bilirubin 0.4 mg/dL (0.2-1.3); Total Protein 7.8 g/dL (6.3-8.2)
[2019-06-01 13:17] LABS: Appearance,Urine Clear (Clear); Bilirubin,Urine Negative (Negative); Blood,Urine Negative (Negative); Color,Urine Yellow; Glucose,Urine (UA) Negative (Negative); Ketones,Urine Negative (Negative); Leukocyte Esterase,Urine Negative (Negative); Nitrite,Urine Negative (Negative); Protein,Urine Negative (Negative); Specific Gravity,Urine 1.016 (1.001-1.035); Urobilinogen,Urine <2.0 mg/dL (<2.0)
[2019-06-01 13:53] VITALS: BP 128/77; PULSE 74; RESP 16
== END 2019-06-01 13:51 | disposition home or self-care (01) ==
LOC: EC 09:56
DX: K80.50 Calculus of bile duct without cholangitis or cholecystitis without obstruction (principal); F41.9 Anxiety disorder, unspecified; F32.9 Major depressive disorder, single episode, unspecified; K21.9 Gastro-esophageal reflux disease without esophagitis; I10 Essential (primary) hypertension; Z79.899 Other long term (current) drug therapy; F17.200 Nicotine dependence, unspecified, uncomplicated
CPT/HCPCS: 99284; 96374; 96375 ×2; 96361 ×2; 36415; 80053; 82150; 83690; 85025; 85610; 85730; 81003; J2405; J1885; C9113

== ENCOUNTER → 2019-06-10 | Outpatient (CLI) | payer OTHER ==
--- NOTE | 2019-06-10 09:14 | NM ---
EXAMINATION TYPE: NM hepatobiliary w EF DATE OF EXAM: 06/10/2019 COMPARISON: NONE HISTORY: Right upper quadrant pain TECHNIQUE: After the intravenous administration of 4.3 mCi Tc 99m Mebrofenin hepatobiliary scintigrap hy is performed. Immediate images post injection. FINDINGS: There is satisfactory initial accumulation of tracer by the liver. The gallbladder is visualized wit hin 12 minutes. The small bowel activity is noted within 60 minutes. At one hour 8 ounces of oral e nsure plus is given to mimic CCK and gallbladder ejection fraction is calculated at 73 %, in the norm al range. Therefore there is no scintigraphic evidence of cystic or common bile duct obstruction to suggest acute cholecystitis or gallbladder dyskinesia. IMPRESSION: Exam is within normal limits.
== END | disposition home or self-care (01) ==
LOC: RADNMMAIN 06:40
PROVIDERS: ATTEND Family Medicine
DX: R10.11 Right upper quadrant pain (principal)
CPT/HCPCS: 78226; A9537

== ENCOUNTER → 2019-06-27 | Outpatient (CLI) | payer OTHER ==
--- NOTE | 2019-06-28 04:46 | CT ---
EXAMINATION TYPE: CT abdomen w con DATE OF EXAM: 06/27/2019 COMPARISON: Correlation ultrasound 05/30/2019 HISTORY: 34-year-old male RUQ pain TECHNIQUE: Contiguous axial scanning of the abdomen following administration of 100 ml Isovue 300 IV contrast. Delayed images through the kidneys and coronal/sagittal reconstructions performed. CT DLP: 696.7 mGycm Automated exposure control for dose reduction was used. FINDINGS: Heart normal size without pericardial effusion. Lung bases clear without pleural effusion. No focal liver lesion or biliary ductal dilatation. Portal venous system is patent. Gallbladder, adrenal glands, spleen with tiny anterior splenule, and pancreas appear within normal li mits. Couple punctate nonobstructive right renal calculi, coronal image 58 and 59. There is also a duplex l eft renal collecting system. Unclear as to what level the 2 ureters join. No dilated small bowel, free fluid, or free air. Scattered prominent mesenteric lymph nodes measuring up to 8 mm hiram hepatic and numerous small to b orderline in size lymph nodes clustered in the right midabdomen measuring up to 7 mm. Normal appendix. Oral contrast progressed to the cecum. Mild stool burden. Occasional left-sided colo penelope diverticulosis without pericolonic inflammatory change. Pelvis is not imaged. Bones: No osseous destructive process. IMPRESSION: 1. A FEW CLUSTERED NONENLARGED AND BORDERLINE SIZED RIGHT MID ABDOMINAL MESENTERIC LYMPH NODES MEASUR ING UP TO 7 MM MAY BE REACTIVE/POST INFLAMMATORY. CORRELATE FOR MILD MESENTERIC ADENITIS. 2. A COUPLE PUNCTATE 2 MM NONOBSTRUCTIVE RIGHT RENAL CALCULI. 3. OCCASIONAL LEFT-SIDED COLONIC DIVERTICULOSIS. NO EVIDENCE FOR ACUTE DIVERTICULITIS. 4. INCIDENTAL LEFT-SIDED DUPLEX LEFT RENAL COLLECTING SYSTEM.
== END | disposition home or self-care (01) ==
LOC: RADCTMAIN 15:51
PROVIDERS: ATTEND Family Medicine
DX: N20.0 Calculus of kidney (principal); R59.0 Localized enlarged lymph nodes; K57.30 Diverticulosis of large intestine without perforation or abscess without bleeding; Q63.0 Accessory kidney
CPT/HCPCS: 74160; Q9967

== ENCOUNTER → 2020-02-13 | Outpatient (CLI) | payer OTHER ==
--- NOTE | 2020-02-13 09:21 | CT ---
EXAMINATION TYPE: CT angio chest DATE OF EXAM: 02/13/2020 COMPARISON: None HISTORY: 34-year-old male R07.9, R79.89 Chest pain for 10 days TECHNIQUE: Contiguous axial scanning of the chest performed with IV Contrast, patient injected with 1 00 ml mL of Isovue 370. Coronal/sagittal MIP reconstructions performed. CT DLP: 463 mGycm Automated exposure control for dose reduction was used. FINDINGS: Heart normal size without pericardial effusion. No flattening of the interventricular septum or reflu x of contrast into the hepatic veins. Aorta normal caliber with conventional arch vessel branching anatomy. No evidence for aortic dissecti on. Some residual thymic tissue along the anterior mediastinum. Prominent bilateral hilar lymph nodes imer suring up to 1.5 cm on the right. Otherwise, no other thoracic lymphadenopathy by CT size criteria. T here is bilateral gynecomastia. There is suboptimal opacification of the pulmonary arterial system for assessment of pulmonary note l arge central definite lobar branch embolus. Many of the segmental and more distal arterial branches a re nondiagnostic and emboli in these locations cannot be excluded on the basis of this exam. Mild diffuse bronchial wall thickening. Couple areas of vague groundglass posterior left upper and mi dlung, axial image 28 and 46. No consolidation or pleural effusion. Tiny anterior hilar splenule. Bones: No osseous destructive process. IMPRESSION: 1. NO EVIDENCE FOR AORTIC DISSECTION OR ANEURYSM. 2. SUBOPTIMAL OPACIFICATION OF THE PULMONARY ARTERIAL SYSTEM. NO LARGE CENTRAL OR DEFINITE LOBAR BRAN CH EMBOLUS. MANY OF THE SEGMENTAL AND MORE DISTAL ARTERIAL BRANCHES ARE NONDIAGNOSTIC. 3. MILD DIFFUSE BRONCHIAL WALL THICKENING COULD REFLECT BRONCHITIS OR ASTHMA. 4. A COUPLE VAGUE GROUNDGLASS AREAS IN THE LEFT LUNG COULD REPRESENT SMALL INFECTIOUS/INFLAMMATORY FO CI VERSUS MOSAIC ATTENUATION RELATED TO SMALL AIRWAYS DISEASE. 5. PROMINENT BILATERAL HILAR LYMPH NODES MEASURING UP TO 1.5 CM LIKELY REACTIVE/POST INFLAMMATORY.
== END | disposition home or self-care (01) ==
LOC: RADCTMAIN 08:10
PROVIDERS: ATTEND Family Medicine
DX: R91.8 Other nonspecific abnormal finding of lung field (principal); J98.4 Other disorders of lung; R79.89 Other specified abnormal findings of blood chemistry
CPT/HCPCS: 71275; Q9967

== ENCOUNTER 2020-06-04 10:12 | Emergency (ER) | payer OTHER ==
[2020-06-04 10:18] VITALS: BP 142/93; PULSE 96; RESP 18; TEMP 98
--- NOTE | 2020-06-04 11:33 | XR ---
No sacral spine HISTORY: Pain 5 views lumbosacral spine There is no evident spondylolysis or spondylolisthesis. Lumbar vertebral bodies show preserved height and bone mineralization. Disc spaces are maintained. IMPRESSION: Normal lumbar spine
[2020-06-04] MEDS ORDERED: traMADol 50 MG STARTER PACK 3 TAB BTL PO STA (11:42)
[2020-06-04] MEDS ORDERED: KETOROLAC 15 MG/ML 1 ML VIAL IM STA (11:42)
--- NOTE | 2020-06-04 12:00 | ED ---
Back Pain [facility] - General Chief Complaint: Back Pain/Injury Stated Complaint: back pain Time Seen by Provider: 06/04/20 11:15 Source: patient Limitations: no limitations - History of Present Illness Initial Comments: Patient is a 35-year-old male presenting to emergency Department with complaints of lower back pain that has been ongoing for 1-2 months now. Patient states his pain started after he picked up his dog and felt a pain in his low back. Patient has been seeing his PCP for this, started with some physical therapy which she states has been making him feel worse. His doctor did prescribe him some muscle relaxers as well as Natural Bridge medicine which she has been taking. Patient states he is now out of his Natural Bridge's. He does have an EMG scheduled in 2 days. They are also going to schedule him for a lumbar MRI. He denies any bowel or bladder incontinence, no saddle paresthesias. No fever or chills. He denies any other further falls, trauma, lifting infants. He denies any significant increase in his pain, just his pain has not decreased. He has no further complaints at this time. Upon arrival to the ER his vital signs are stable. - Related Data Home Medications Medication Instructions Recorded Confirmed Atorvastatin [Lipitor] 20 mg PO QAM 12/11/17 03/22/19 Ergocalciferol (Vitamin D2) 50,000 unit PO Q30D 12/11/17 03/22/19 [Vitamin D2] Omeprazole [PriLOSEC] 20 mg PO BID 12/11/17 03/22/19 buPROPion HCL [Wellbutrin SR] 150 mg PO BID 12/11/17 03/22/19 Dextroamphetamine/Amphetamine 20 mg PO BID 07/06/18 03/22/19 [Adderall] Metoclopramide [Reglan] 10 mg PO ACHS 07/06/18 03/22/19 amLODIPine [Norvasc] 5 mg PO DAILY 07/06/18 03/22/19 Albuterol Inhaler (Mhu) [Ventolin 1 - 2 puff INHALATION RT-Q6H PRN 03/22/19 03/22/19 Hfa Inhaler (Mhu)] Previous Rx's Medication Instructions Recorded Polymyxin B-Trimeth Sulf Ophth 1 drops BOTH EYES Q4H #1 bottle 03/22/19 [Polytrim Opthalmic] Ondansetron Odt [Zofran Odt] 4 mg PO Q8HR PRN #12 tab 06/01/19 Pantoprazole [Protonix] 40 mg PO DAILY #12 tablet. 06/01/19 methylPREDNISolone [Medrol Dose 4 mg PO DIRECTED #1 pack 06/04/20 Pack] Allergies Allergy/AdvReac Type Severity Reaction Status Date / Time No Known Allergies Allergy Verified 06/04/20 10:18 Review of Systems ROS Statement: Those systems with pertinent positive or pertinent negative responses have been documented in the HPI. ROS Other: All systems not noted in ROS Statement are negative. Past Medical History Past Medical History: GERD/Reflux, Hypertension Additional Past Medical History / Comment(s): CURRENT: N & V, ABD PAIN. OCCASIONAL DIZZINESS. Depressed skull fracture History of Any Multi-Drug Resistant Organisms: None Reported Past Surgical History: No Surgical Hx Reported Past Anesthesia/Blood Transfusion Reactions: Motion Sickness Additional Past Anesthesia/Blood Transfusion Reaction / Comment(s): NO ANESTHESIA. Past Psychological History: Anxiety, Depression Smoking Status: Current every day smoker Past Alcohol Use History: None Reported Past Drug Use History: None Reported - Past Family History Mother Family Medical History: No Reported History General Exam - General Exam Comments Initial Comments: GENERAL: Patient is well-developed and well-nourished. Patient is nontoxic and in no acute distress. HEAD: Atraumatic, normocephalic. EYES: Pupils equal round and reactive to light, extraocular movements intact, sclera anicteric, conjunctiva are normal. Eyelids were unremarkable. ENT: TMs normal, nares patent, oropharynx clear without exudates. Moist mucous membranes. NECK: Normal range of motion, supple without lymphadenopathy or JVD. LUNGS: Unlabored respirations. Breath sounds clear to auscultation bilaterally and equal. No wheezes rales or rhonchi. HEART: Regular rate and rhythm without murmurs, rubs or gallops. ABDOMEN: Soft, nontender, normoactive bowel sounds. No guarding, no rebound. No masses appreciated. : Deferred MUSCULOSKELETAL: Normal extremities with adequate strength and normal range of motion, no pitting or edema. No clubbing or cyanosis. No pain to palpation of midline lumbar spine, lumbar paraspinals. He is neurovascular intact bilateral lower extremities. Increased pain with trunk extension. NEUROLOGICAL: Patient is alert and oriented x 3. Motor and sensory are also intact. Cranial nerves II through XII grossly intact. Symmetrical smile. Normal speech, normal gait. PSYCH: Normal mood, normal affect. SKIN: Warm, Dry, normal turgor, no rashes or lesions noted. Limitations: no limitations Course Vital Signs 06/04/20 10:13 Temperature 98.0 F Pulse Rate 96 Respiratory 18 Rate Blood Pressure 142/93 O2 Sat by Pulse 99 Oximetry Medical Decision Making - Medical Decision Making Patient is a 35-year-old male here with low back pain that is an ongoing for 1-2 months. He has been seeing his PCP for this, he has been taking Natural Bridge's as well as a muscle relaxer home. He does have an appointment scheduled in 2 days for an EMG, plan is to have an MRI. He has been doing physical therapy. He has no new acute symptoms, no fever or chills. His vitals are stable. He has no significant low back pain tenderness on palpation. No acute neuro deficits. Patient will be given Toradol shot today, round of dose pack. He can follow-up with his PCP. Patient did request Natural Bridge's as he is out however I told him I cannot prescribe these he needs to get these from his PCP. I will give him an Ultram starter pack. He is agreeable with this plan of care. Return parameters were discussed with the patient he verbalizes understanding. Disposition Clinical Impression: Low back pain Disposition: HOME SELF-CARE Condition: Stable Instructions (If sedation given, give patient instructions): Acute Low Back Pain (ED) Additional Instructions: Please return to the Emergency Department if symptoms worsen or any other concerns. Xrays today were normal. Take steroids as prescribed. May continue to alternate between Tylenol and Motrin for pain control. Follow up with your PCP. Prescriptions: methylPREDNISolone [Medrol Dose Pack] 4 mg PO DIRECTED #1 pack Is patient prescribed a controlled substance at d/c from ED?: No Referrals: Ross Plummer MD [Primary Care Provider] - 1-2 days
== END 2020-06-04 12:14 | disposition home or self-care (01) ==
LOC: EC 10:12
DX: M54.5 Low back pain (principal); F41.9 Anxiety disorder, unspecified; F32.9 Major depressive disorder, single episode, unspecified; K21.9 Gastro-esophageal reflux disease without esophagitis; I10 Essential (primary) hypertension; F17.200 Nicotine dependence, unspecified, uncomplicated; Z79.899 Other long term (current) drug therapy
CPT/HCPCS: 72110; 99283; 96372; J1885

== ENCOUNTER 2022-04-10 10:13 | Emergency (ER) | payer OTHER ==
[2022-04-10 11:37] VITALS: BP 146/97; PULSE 95; RESP 24; TEMP 97.9
== END 2022-04-10 15:24 | disposition left against medical advice (07) ==
LOC: EC 10:13
DX: Z53.21 Procedure and treatment not carried out due to patient leaving prior to being seen by health care provider (principal)
CPT/HCPCS: 99499; G0463; 99214